=== PATIENT | female | born 1980 | race Caucasian/White ===

== ENCOUNTER 2020-03-26 00:08 | Emergency (ER) | payer MEDICAID ==
[~2020-03-26] VITALS: Ht 157.5 cm; Wt 74.8 kg
[2020-03-26 00:20] VITALS: BP 113/59
--- NOTE | 2020-03-26 00:24 | NUR ---
PT AMBULATED TO BED #5
--- NOTE | 2020-03-26 00:33 | NUR ---
39 Y/O FEMALE PRESENTS TO ER WITH RT FLANK PAIN X1 DAY. 05/18 NON RADIATING PAIN. C/O DYSURIA, AND RT FLANK PAIN. DENIES FEVER, NAUSEA, VOMITING, DIARRHEA, CHILLS, DISHARGE, BLOOD, HEADACHE, SOB, COUGH. LMP 03/02/20. R/R EQUAL, AND UNLABORED, VSS. SIDE RAIL X1, BED IN LOW POSITION, WILL CONTINUE TO MONITOR. ERITREAN SPEAKING ONLY. NKDA DENIES PMH
--- NOTE | 2020-03-26 00:43 | NUR ---
Dr. Draper examining patient.
[2020-03-26] MEDS ORDERED: KETOROLAC 60 MG/2 ML VIAL IM ONE (01:00)
[2020-03-26 01:30] VITALS: BP 113/59
--- NOTE | 2020-03-26 01:30 | NUR ---
Patient discharged with v/s stable. Written and verbal after care instructions given and explained. Patient alert, oriented and verbalized understanding of instructions. Ambulatory with steady gait. All questions addressed prior to discharge. ID band removed. Patient advised to follow up with PMD. Rx of MOTRIN, CIPRO given. Patient educated on indication of medication including possible reaction and side effects. Opportunity to ask questions provided and answered.
== END 2020-03-26 01:30 | disposition home or self-care (01) ==
LOC: MED 00:08
DX: N39.0 Urinary tract infection, site not specified (principal)
CPT/HCPCS: 81002; 81025; 96372; 99283; J1885

== ENCOUNTER 2020-06-29 21:45 | Emergency (ER) | payer MEDICAID ==
[~2020-06-29] VITALS: Ht 157.5 cm; Wt 72.1 kg
[2020-06-29 21:47] VITALS: BP 121/71
--- NOTE | 2020-06-29 22:06 | NUR ---
Carolynn danielson in ED - 06/29/20 at 2208 by RAHATJ PT TAKEN TO BED #10
--- NOTE | 2020-06-29 22:08 | NUR ---
PT AMBUALTED TO BED 7 WITH STEADY GAIT.
--- NOTE | 2020-06-29 22:21 | NUR ---
PT 39 Y/O FEMALE BIB FROM HOME BY SELF FOR C/O BILATERAL FLANK PAIN X 1 WEEK. PT DENIES PAINFUL URINATION OR FREQUANCY. PT DENIES TAKING OTC MEDICATIONS FOR PAIN MANAGEMENT. PT DENIES ABD PAIN. RESPIRATIONS ARE EVEN AND UNALBORED, SKIN IS WARM AND DRY TO TOUCH. DENIES COUGH, SOB, AFEBIRLE. BED IS LOCKED AND IN LOWEST POSITON. PT PLACED IN GOWN, UA PROVIDED AND PALCED IN DIRTY UTILITY. MEDHX: DENIES ALLERGIES: DONALD
--- NOTE | 2020-06-29 22:36 | NUR ---
ERMD AT BEDSIDE.
--- NOTE | 2020-06-29 22:40 | NUR ---
PT TAKEN TO CT VIA W/C
[2020-06-30 00:17] VITALS: BP 117/78
== END 2020-06-30 00:15 | disposition home or self-care (01) ==
LOC: MED 21:45
DX: K59.00 Constipation, unspecified (principal)
CPT/HCPCS: 81002; 81025; 99284

== ENCOUNTER 2023-01-02 22:16 | Emergency (ER) | payer MEDICAID ==
[~2023-01-02] VITALS: Ht 157.5 cm; Wt 67.1 kg
[2023-01-02 22:38] VITALS: BP 102/66
--- NOTE | 2023-01-03 00:04 | NUR ---
Patient taken to X-ray via WC.
--- NOTE | 2023-01-03 00:33 | NUR ---
PT TAKEN TO BED 9
--- NOTE | 2023-01-03 00:35 | NUR ---
Dr. Brunner examining patient.
[2023-01-03] MEDS ORDERED: KETOROLAC 30 MG/ML VIAL IM ONE (00:45)
[2023-01-03] MEDS ORDERED: NAPR-54 PO (01:08)
[2023-01-03 01:35] VITALS: BP 108/66
== END 2023-01-03 01:35 | disposition home or self-care (01) ==
LOC: MED 22:16
DX: R07.89 Other chest pain (principal); R11.0 Nausea
CPT/HCPCS: 71045; 96372; 99284; J1885; 99283